=== PATIENT | female | born 1950 | race Caucasian/White ===

== ENCOUNTER 2017-06-07 07:19 | Day surgery (SDC) | payer MEDICARE, OTHER ==
[2017-06-07] MEDS: Dextrose 5%-Lactated Ringers 1,000 ML IV SCH ×2 (08:09→10:09)
[2017-06-07] MEDS ORDERED: fentaNYL 100 MCG/2 ML SDV ONE (08:17)
[2017-06-07] MEDS ORDERED: Midazolam 1 MG/ML 2 ML SDV ONE (08:17)
[2017-06-07] MEDS ORDERED: Propofol 200 MG/20 ML SDV ONE (08:17)
[2017-06-07 10:31] VITALS: BP 108/83
--- NOTE | 2017-06-11 13:35 | OR ---
DATE OF PROCEDURE: 06/07/2017 PREOPERATIVE DIAGNOSIS: Indications for screening colonoscopy. POSTOPERATIVE DIAGNOSIS: Normal screening colonoscopy. OPERATIVE PROCEDURE: Flexible colonoscopy. ANESTHESIA: IV sedation. INDICATION FOR PROCEDURE: A 67-year-old female presenting for screening colonoscopy. Plan is to proceed with a colonoscopy with biopsies and/or polypectomy as indicated. Potential risks including bleeding and perforation were discussed, and the patient wishes to proceed. DETAILS OF PROCEDURE: The patient was taken to the operating room and placed in a left lateral decubitus position. IV sedation was administered, after which the initial digital rectal exam was performed and was unremarkable. Colonoscope was then passed to the level of the rectum where retroflexion revealed uncomplicated hemorrhoidal columns. The scope was eventually passed to the level of the cecum. The prep was fair. There was quite a bit of liquid stool present which should prompt perhaps 10% of the mucosal surface. Apart from that, there were no abnormalities noted. Specifically, no areas of diverticulosis. No areas of colitis and no polyps or other signs of neoplasia. The scope was withdrawn. The above findings reconfirmed, and the procedure then concluded. Recommendation would be to repeat the colonoscopy in 10 years. Sarthak Golden MD /[id number]
== END 2017-06-07 10:48 | disposition home or self-care (01) ==
LOC: JP.SDS 07:19
PROVIDERS: ATTEND Surgery
DX: Z12.11 Encounter for screening for malignant neoplasm of colon (principal); G47.33 Obstructive sleep apnea (adult) (pediatric)
CPT/HCPCS: G0121; J2250; J2704; J3010; J7042

== ENCOUNTER 2020-12-22 05:52 | Day surgery (SDC) | payer MEDICARE, OTHER ==
[2020-12-22] MEDS ORDERED: Metoprolol Tartrate 25 MG Tab PO ONE (06:15)
[2020-12-22] MEDS ORDERED: Dextrose 5%-Lactated Ringers 1,000 ML IV SCH (06:45)
[2020-12-22] MEDS ORDERED: Midazolam 1 MG/ML 2 ML SDV ONE (07:07)
[2020-12-22] MEDS ORDERED: Propofol 200 MG/20 ML SDV ONE (07:07)
[2020-12-22] MEDS ORDERED: fentaNYL 100 MCG/2 ML SDV ONE (07:07)
[2020-12-22 08:28] VITALS: BP 110/69; PULSE 62
--- NOTE | 2021-02-08 11:42 | OR ---
DATE OF PROCEDURE: 12/22/2020 SURGEON: Sarthak Golden MD PREOPERATIVE DIAGNOSIS: Recent bright red blood per rectum. POSTOPERATIVE DIAGNOSIS: Recent bright red blood per rectum secondary to hemorrhoidal bleeding. OPERATIVE PROCEDURE: 1. Flexible colonoscopy. 2. Anoscopy with hemorrhoidal banding x1. ANESTHESIA: IV sedation. INDICATIONS FOR PROCEDURE: This is a 70-year-old presenting with some recent bright red blood per rectum. She presents for a colonoscopy. By history, this bleeding is suggestive of a bleeding pattern from internal hemorrhoids. Plan is to proceed with a colonoscopy with biopsies and/or polypectomy, and if indicated hemorrhoidal banding. Potential risks including bleeding, infection, perforation at the time of the colonoscopy, problems with pain or persistent bleeding following hemorrhoidal banding were reviewed, and the patient wishes to proceed. DETAILS OF PROCEDURE: The patient was taken to the operating room, placed in a left lateral decubitus position. IV sedation was administered, after which the initial digital rectal exam was performed which was unremarkable. The colonoscope was then passed into the rectum with retroflexion revealing some excoriated hemorrhoidal columns. One of these was particularly prominent and would likely account for the patient's recent bleeding. The colonoscope was then eventually passed to the cecum. To that level, no additional pathology was seen. There was no diverticula. No areas of colitis. No polyps or other signs of neoplasia. Scope was then withdrawn and the above findings reconfirmed. At this point, the endoscopic anoscope was with hemorrhoidal banding equipment. The predominant engorged hemorrhoid was then gathered up under direct vision and the band applied. Good banding seating was confirmed and the procedure was concluded. The patient was taken to the recovery room in satisfactory condition. There were no evident complications. Sarthak Golden MD /[id number]
== END 2020-12-22 09:00 | disposition home or self-care (01) ==
LOC: JP.SDS 05:52
PROVIDERS: ATTEND Surgery
DX: K64.9 Unspecified hemorrhoids (principal); K21.9 Gastro-esophageal reflux disease without esophagitis; G47.33 Obstructive sleep apnea (adult) (pediatric)
CPT/HCPCS: 45378; 46221; A9270; J2250; J2704; J3010; J7121

== ENCOUNTER 2021-05-19 06:58 | Day surgery (SDC) | payer MEDICARE, OTHER ==
[2021-05-19] MEDS ORDERED: Sodium Chloride 0.9% 10 ML Syringe FLUSH PRN (07:30)
[2021-05-19 08:55] VITALS: BP 130/70; PULSE 71
--- NOTE | 2021-05-19 11:03 | OR ---
DATE OF PROCEDURE: 05/19/2021 SURGEON: Itzel Whyte MD POSTOPERATIVE CARE: Postoperative care will be provided mainly at the [address] [place] [address] [facility] in conjunction with [facility]. PREOPERATIVE DIAGNOSIS: Cataract, right eye. POSTOPERATIVE DIAGNOSIS: Cataract, right eye. PROCEDURE: Phacoemulsification with intraocular lens placement, right eye. ANESTHESIA: Topical and intracameral. ESTIMATED BLOOD LOSS: Minimal. COMPLICATIONS: None. PATHOLOGY SPECIMENS: None. SURGICAL FINDINGS: None. INDICATION FOR PROCEDURE: The patient is a 71-year-old female with history of a visually significant cataract in the right eye, which interfered with activities of daily living. This consisted of a nuclear sclerosis cataract. Following careful discussion of the risks, benefits and alternatives to cataract extraction with intraocular lens placement including blindness and , the patient elected to proceed, and informed, written consent was obtained prior to the procedure. DESCRIPTION OF THE PROCEDURE: The patient was previously identified, and a mack placed above the right eye. All sources, including the patient, indicated that the right eye was the correct eye. The patient was subsequently taken to the operating room where standard monitors were applied. The patient was then prepped and draped in the usual sterile fashion for ophthalmic surgery. Attention was first directed at the 12 o'clock position where a paracentesis port was fashioned. Shugar solution followed by Viscoat was instilled into the eye. Attention was then directed to the 8:30 position where a triplanar incision was made in a near-clear manner using a keratome. A continuous capsulorrhexis was then made using a combination of the cystotome and Utrata forceps. Hydrodissection was achieved using a balanced salt solution, and the lens rotated nicely. Phacoemulsification was then done using a modified [id number] technique without complication. Phaco time was 6.90 CDE. The remaining cortex was removed using the irrigation/aspiration handpiece. Provisc was then instilled into the eye. A Technis lens, model DCB00, at 12.5 diopters was then placed in the capsular bag using an Blawnox injector. The remaining viscoelastic was removed using the irrigation/aspiration forceps. All wounds were then checked and found to be watertight. The lid speculum and drapes were removed. Maxitrol ointment was placed in the patient's right eye, and the eye was shielded. The patient tolerated the procedure well. The patient was instructed to follow up tomorrow. All needle and sponge counts were correct at the end of the procedure. Itzel Whyte MD /[id number]
== END 2021-05-19 09:05 | disposition home or self-care (01) ==
LOC: JP.SDS 06:58
PROVIDERS: ATTEND Ophthalmology
DX: H25.11 Age-related nuclear cataract, right eye (principal); G47.33 Obstructive sleep apnea (adult) (pediatric)

== ENCOUNTER 2021-06-02 08:23 | Day surgery (SDC) | payer MEDICARE, OTHER ==
[2021-06-02 08:43] VITALS: PULSE 77
[2021-06-02] MEDS ORDERED: Sodium Chloride 0.9% 10 ML Syringe FLUSH PRN (09:00)
[2021-06-02 09:32] VITALS: BP 118/57
--- NOTE | 2021-06-07 12:16 | OR ---
DATE OF PROCEDURE: 06/02/2021 SURGEON: Itzel Whyte MD POSTOPERATIVE CARE: Postoperative care will be provided mainly at the [address] [place] [address] [facility] in conjunction with [facility]. PREOPERATIVE DIAGNOSIS: Cataract, left eye. POSTOPERATIVE DIAGNOSIS: Cataract, left eye. PROCEDURE: Phacoemulsification with intraocular lens placement, left eye. ANESTHESIA: Topical and intracameral. ESTIMATED BLOOD LOSS: Minimal. COMPLICATIONS: None. PATHOLOGY SPECIMENS: None. SURGICAL FINDINGS: None. INDICATION FOR PROCEDURE: The patient is a 71-year-old female with history of a visually significant cataract in the left eye, which interfered with activities of daily living. This consisted of a nuclear sclerosis cataract. Following careful discussion of the risks, benefits and alternatives to cataract extraction with intraocular lens placement including blindness and , the patient elected to proceed, and informed, written consent was obtained prior to the procedure. DESCRIPTION OF THE PROCEDURE: The patient was previously identified, and a mack placed above the left eye. All sources, including the patient, indicated that the left eye was the correct eye. The patient was subsequently taken to the operating room where standard monitors were applied. The patient was then prepped and draped in the usual sterile fashion for ophthalmic surgery. Attention was first directed at the 12 o'clock position where a paracentesis port was fashioned. Shugar solution followed by Viscoat was instilled into the eye. Attention was then directed to the 8:30 position where a triplanar incision was made in a near-clear manner using a keratome. A continuous capsulorrhexis was then made using a combination of the cystotome and Utrata forceps. Hydrodissection was achieved using a balanced salt solution, and the lens rotated nicely. Phacoemulsification was then done using a modified [id number]-lavjnuo technique without complication. Phaco time was 5.87 CDE. The remaining cortex was removed using the irrigation/aspiration handpiece. Provisc was then instilled into the eye. A Technis lens, model DCB00, at 12.0 diopters was then placed in the capsular bag using an Nectar injector. The remaining viscoelastic was removed using the irrigation/aspiration forceps. All wounds were then checked and found to be watertight. The lid speculum and drapes were removed. Maxitrol ointment was placed in the patient's left eye, and the eye was shielded. The patient tolerated the procedure well. The patient was instructed to follow up tomorrow. All needle and sponge counts were correct at the end of the procedure. There were no surgical findings. Itzel Whyte MD /[id number]
== END 2021-06-02 09:32 | disposition home or self-care (01) ==
LOC: JP.SDS 08:23
PROVIDERS: ATTEND Ophthalmology
DX: H25.12 Age-related nuclear cataract, left eye (principal); G47.33 Obstructive sleep apnea (adult) (pediatric); I48.91 Unspecified atrial fibrillation; K21.9 Gastro-esophageal reflux disease without esophagitis